=== PATIENT | female | born 1985 | race Caucasian/White ===

== ENCOUNTER 2024-12-30 08:30 | Outpatient (RCR) | payer MEDICAID, SELFPAY ==
--- NOTE | 2024-12-29 08:30 | XR_ITS ---
Examination: Nuclear medicine thyroid uptake and scan Exam date and time: December 29, 2024 at 0747 hrs. Indications: Diagnosis nontoxic single thyroid nodule, dysphagia, feeling a palpable left thyroid with fatigue and weight gain Technique And Findings: Oral administration 281 uCi I-[id number] 24 hour uptake 33.7% normal range 10-36% Hyperfunctioning nodule in the lower pole right thyroid Impression: Hyperfunctioning nodule in the lower pole right thyroid, recommend correlation with thyroid sonography
== END 2025-01-04 23:59 | disposition home or self-care (01) ==
LOC: SNUC 08:30
PROVIDERS: PCP Registered Nurse; Referring Provider Registered Nurse; Visit Provider Registered Nurse
DX: E04.1 Nontoxic single thyroid nodule (principal)
CPT/HCPCS: 78013; A9516